=== PATIENT | male | born 1980 | race Hispanic/Latino ===

== ENCOUNTER 2022-01-17 08:23 | Emergency (ER) | payer SELFPAY ==
--- NOTE | 2022-01-17 08:27 | ED.SKABFB ---
HPI - Skin/Abscess/Foreign Bdy General Chief complaint: Skin/Abscess/Foreign Body Stated complaint: RASH Time Seen by Provider: 01/17/22 08:28 Source: patient and RN notes reviewed History of Present Illness HPI narrative: Patient is a 41-year-old male who presents the urgent care, with the inclusion specialist, with complaints of diffuse itchy, raised hives. Patient states it started on Saturday and he has been taking Zyrtec with mild improvement. Denies any known new detergents, creams or lotions. 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 Denies any shortness of breath. No other acute complaints. No acute distress noted. Patient aware of the plan of care. Some parts of this dictation were generated by voice recognition software and may contain typographical and/or grammatical inaccuracies. Related Data Allergies Allergy/AdvReac Type Severity Reaction Status Date / Time No Known Allergies Allergy Verified 01/17/22 08:28 Review of Systems Review of Systems: CONSTITUTIONAL: Denies fever, chills, or sweats. EYES: Denies visual changes, redness, or discharge. ENT: Denies rhinorrhea, congestion, sore throat, or otalgia. CARDIOVASCULAR: Denies chest pain, palpitations, or edema. RESPIRATORY: Denies cough or dyspnea. GASTROINTESTINAL: Denies abdominal pain, nausea, vomiting, or diarrhea. GENITOURINARY: Denies dysuria or hematuria. SKIN: Reports of itchy red hives MUSCULOSKELETAL: Denies back pain, joint pain, or myalgia. NEUROLOGIC: Denies headache, numbness, or weakness. All other systems reviewed are negative, except as documented in HPI. PMFSH Comments At the time of my signature, I reviewed and agree with the nursing past medical, surgical, social, and family history. There is no relevant family history pertinent to the patient complaint. Exam Narrative: GENERAL: This is a well-nourished, well-developed patient, in no apparent distress. HEAD: normocephalic, atraumatic. EYES: PERRL. Sclera clear/white. Vision is grossly intact. EARS: External ears normal NOSE: External nose normal with no obvious nasal discharge, nares without redness, no rhinorrhea. THROAT: Mucous membranes moist NECK: Neck supple CARDIOVASCULAR: Regular rate and rhythm without murmurs, gallops, or rubs. RESPIRATORY: Clear to auscultation. Breath sounds equal bilaterally. No wheezes, rales, or rhonchi. SKIN: Raised blanching erythemic urticaria diffuse to the trunk and bilateral upper and lower extremities NEURO: awake, alert, and oriented to person, place and time. There were no obvious focal neurologic abnormalities. EXTREMITIES: No clubbing, cyanosis, or edema. Course Course Level of Care: Express Care Visit Vital Signs Vital signs: Vital Signs Temperature 98.2 F 01/17/22 08:32 Pulse Rate 75 01/17/22 08:32 Respiratory Rate 15 01/17/22 08:32 Blood Pressure 105/75 01/17/22 08:32 Pulse Oximetry 100 01/17/22 08:32 Oxygen Delivery Room Air 01/17/22 08:32 Temperature 98.2 F 01/17/22 08:32 Pulse Rate 75 01/17/22 08:32 Respiratory Rate 15 01/17/22 08:32 Blood Pressure 105/75 01/17/22 08:32 Pulse Oximetry 100 01/17/22 08:32 Oxygen Delivery Room Air 01/17/22 08:32 Reviewed MDM - Skin/Abscess/Foreign Bdy MDM Narrative Medical decision making narrative: Advised patient to complete the steroid regimen as prescribed. Be sure to eat and drink with the medication. It is likely something you came in contact with either while working or a new detergent/cream/lotion you have used recently. Hives can improve slightly with steroids, helping with the inflammation and itch. However, if you come in contact with the trigger repeatedly, the hives will continue. Advised the patient to stay on the daily antihistamine such as Zyrtec or Claritin and use Benadryl at night. Be aware that being out in the heat, getting sweaty, or out of a hot shower will e
[2022-01-17 08:32] VITALS: BP 105/75; PULSE 75; RESP 15; TEMP 36.8; O2SAT 100
== END 2022-01-17 08:45 | disposition home or self-care (01) ==
PROVIDERS: Emergency Provider Nurse Practitioner Family
DX: L50.9 Urticaria, unspecified (principal)
CPT/HCPCS: 99213; G0463

== ENCOUNTER 2023-04-18 15:35 | Emergency (ER) | payer SELFPAY ==
--- NOTE | ~2023-04-18 | XR_ITS ---
EXAMINATION: XR chest 2V DATE: 04/18/2023 16:12 INDICATION: Left anterior chest pain. Soccer injury. TECHNIQUE: Frontal and lateral views of the chest were obtained. COMPARISON: None. FINDINGS: There is no pneumonia, pleural effusion, or pneumothorax. The heart size is normal. IMPRESSION: 1. No acute cardiopulmonary disease. Reviewed, dictated and finalized at location [facility]
--- NOTE | 2023-04-18 15:45 | ED.GENADULT ---
HPI - General Adult General Chief complaint: Chest Pain Stated complaint: CHEST PAIN Source: patient Mode of arrival: ambulatory Limitations: no limitations History of Present Illness HPI narrative: 43 y/o male presented for c/o left chest pain after injury 8 days ago. States that day he lifted weights to exercise the chest, then while playing soccer he was elbowed in the chest. States that pain caused him to fall to the ground. Has had pain with deep breaths and with any movement since then. Pain occasionally radiates to the left upper back.Taking occasional ibuprofen without relief. Denies palpitations, sob, wheezing, dizziness, n/v/d/fc. Related Data Allergies Allergy/AdvReac Type Severity Reaction Status Date / Time No Known Allergies Allergy Verified 04/18/23 15:49 Review of Systems Review of Systems: CONSTITUTIONAL: Denies body aches, fever, chills, or sweats. EYES: Denies visual changes, redness, or discharge. ENT: Denies rhinorrhea, congestion, sore throat, or otalgia. CARDIOVASCULAR: Denies chest pain, palpitations, or edema. RESPIRATORY: Denies cough or dyspnea. GASTROINTESTINAL: Denies abdominal pain, nausea, vomiting, or diarrhea. GENITOURINARY: Denies dysuria or hematuria. SKIN: Denies rash, itching, or wounds. MUSCULOSKELETAL: Reports left chest pain Denies back pain, joint pain, or myalgia. NEUROLOGIC: Denies headache, numbness, tingling, or weakness. PSYCH: Denies depression or anxiety. All systems reviewed & are unremarkable except as noted in HPI and below PMFSH Past Medical History Medical History (Updated 04/18/23 @ 16:31 by Kay Maguire APRN) No pertinent past medical history Comments At time of signature, I have reviewed and agree with nursing past medical, surgical, social and family history unless otherwise noted. Please see nursing chart for further information. There is no relevant family history pertinent to the presenting complaint Exam Narrative: GENERAL: Well-appearing, and in no acute distress. HEAD: Normocephalic, atraumatic. NECK: Normal AROM. Supple. CHEST: No respiratory distress. Clear to auscultation. Left anterior chest localized tenderness with palpation to rib2-3 area. HEART: Regular rate and rhythm. No murmur appreciated. Normal peripheral pulses. ABDOMEN: Soft, nontender, nondistended, normal active bowel sounds. MUSCULOSKELETAL: No bony tenderness. . Left anterior chest pain with lifting, chest movements, and with deep breath. Minimally tender left upper back EXTREMITIES: Normal range of motion. No edema. SKIN: Warm, dry, no rash. Capillary refill normal. Normal skin turgor. NEURO: No focal deficits. Alert and oriented x3. Gait steady. PSYCH: Normal affect. Course Course Emergency Course: Patient is aware of diagnosis, understands and agrees to treatment plan. Anticipatory guidance given. Patient agrees to follow-up as directed and is aware of reasons to seek care at the emergency department. Portions of this record may have been created with voice recognition software Level of Care: Express Care Visit Vital Signs Vital signs: Vital Signs Temperature 98.9 F 04/18/23 15:47 Pulse Rate 87 04/18/23 15:47 Respiratory Rate 16 04/18/23 15:47 Blood Pressure 120/78 04/18/23 15:47 Pulse Oximetry 98 04/18/23 15:47 Temperature 98.9 F 04/18/23 15:47 Pulse Rate 87 04/18/23 15:47 Respiratory Rate 16 04/18/23 15:47 Blood Pressure 120/78 04/18/23 15:47 Pulse Oximetry 98 04/18/23 15:47 Medical Decision Making MDM Narrative Medical decision making narrative: Results of x-ray reviewed with patient. Discussed physical exam findings. Advised supportive measures and signs/symptoms to go to the ER. Pt is appropriate for outpt treatment and f/u. Differential Diagnosis Differential Diagnosis: Rib fracture, contusion, costochondritis, dislocation,pleurisy, PE, pneumothorax, cardiac tamponade, esophageal rupture, pneu
[2023-04-18 15:47] VITALS: BP 120/78; PULSE 87; RESP 16; TEMP 37.2; O2SAT 98
== END 2023-04-18 16:49 | disposition home or self-care (01) ==
PROVIDERS: Emergency Provider Nurse Practitioner Family
DX: R07.89 Other chest pain (principal)
CPT/HCPCS: 71046; 99213; G0463